=== PATIENT | male | born 1965 | race Caucasian/White ===

== ENCOUNTER → 2019-03-01 | Outpatient (CLI) | payer BC ==
--- NOTE | 2019-03-01 17:12 | RAD ---
AP view of the pelvis and two-view study left hip Clinical indications: Left hip pain. FINDINGS: There is moderate joint space narrowing and moderate spurring of the left hip joint. There is moderate spurring and mild joint space narrowing of the right hip joint. No acute fracture or dislocation or lytic process is seen. IMPRESSION: Moderate primary degenerative osteoarthritis of the left hip joint. Mild to moderate primary degenerative osteoarthritis of the right hip joint. Electronically signed by: Juanjo Anna MD (03/01/2019 5:09 PM) [id number]
== END | disposition home or self-care (01) ==
LOC: PMG 12:36
PROVIDERS: ATTEND Family Medicine
DX: M16.0 Bilateral primary osteoarthritis of hip (principal); M25.852 Other specified joint disorders, left hip
CPT/HCPCS: 73502

== ENCOUNTER → 2019-10-08 | Outpatient (CLI) | payer BC ==
[~2019-10-08] MED LIST: IOHEXOL 240 MG/ML 50ML VIAL. ONE; IOHEXOL 240 MG/ML 50ML VIAL. PO ONE; IOHEXOL 300 MG/ML 75 ML VIAL. IV ONE
[2019-10-08 12:52] LABS: ALBUMIN 3.2 g/dL (3.4-5.0); CALCIUM 9.5 mg/dL (8.5-10.1); TOTAL BILIRUBIN 16.6 mg/dL (0.2-1.0)
[2019-10-08 13:01] LABS: BASO # 0.1 x10^3/uL (0.0-0.2); BASO % 1 % (0-3); EOS # 0.2 x10^3/uL (0.0-0.7); EOS % 3 % (0-3); HEMATOCRIT 40.8 % (39.0-53.0); HEMOGLOBIN 14.1 g/dL (13.0-17.5); LYMPH # 1.4 x10^3/uL (1.0-4.8); LYMPH % 23 % (24-48); MEAN CORPUSCULAR HEMOGLOBIN 35 pg (25-35); MEAN CORPUSCULAR HGB CONC 35 g/dL (31-37); MEAN CORPUSCULAR VOLUME 102 fL (79-100); MONO # 0.6 x10^3/uL (0.0-1.1); MONO % 10 % (0-9); NEUT # 3.9 x10^3uL (1.8-7.7); NEUT % 63 % (31-73); PLATELET COUNT 227 x10^3/uL (140-400); WHITE BLOOD COUNT 6.2 x10^3/uL (4.0-11.0)
[2019-10-08 13:22] LABS: ALBUMIN/GLOBULIN RATIO 0.8 (1.0-1.7); TOTAL PROTEIN 7.2 g/dL (6.4-8.2)
[2019-10-08 13:23] LABS: CREATININE 0.8 mg/dL (0.7-1.3); GFR 101.5; POTASSIUM 3.2 mmol/L (3.5-5.1)
--- NOTE | 2019-10-08 14:04 | RAD ---
EXAM: CT Abdomen and Pelvis with IV contrast CLINICAL HISTORY: JAUNDICE, ABDOMINAL BLOATING COMPARISON: none TECHNIQUE: Helical CT of the abdomen and pelvis was performed following the administration of IV contrast. Axial, coronal and sagittal reformatted images were generated. ---PQRS compliance statement - One or more of the following individualized dose reduction techniques were utilized for this study: 1. Automated exposure control 2. Adjustment of the mA and/or kV according to patient size 3. Use of iterative reconstruction technique--- FINDINGS: Lower chest: Coronary artery calcifications are seen. Calcified granuloma right lower lobe. Abdomen and pelvis: Liver and biliary system: No focal liver lesion. The gallbladder is distended. Small gallstones and sludge are seen dependently. There is intrahepatic and extrahepatic biliary ductal dilatation. Spleen: Unremarkable Pancreas: The pancreas is atrophic. Heterogeneous low attenuating mass is suspected within the pancreatic head/uncinate process measuring 2.9 x 1.9 cm. Adrenal glands: Unremarkable Kidneys: Symmetric nephrograms. Symmetric nephrograms. Punctate nonobstructing left lower pole renal calculus. No hydronephrosis or hydroureter. Mild bladder wall thickening likely cystitis. Lymph nodes/retroperitoneum: No abdominal or pelvic lymphadenopathy. No abdominal or pelvic ascites. Vessels: Aorta is unremarkable. Bowel/Peritoneal cavity: Moderate colonic stool content is seen. No small or large bowel dilatation. No bowel obstruction. Appendix is normal. No abdominal or pelvic ascites. Abdominal wall: Trace fat-containing periumbilical hernia is seen. Bladder: Unremarkable Bones: Degenerative changes of the spine are seen. Hip joint degenerative changes are seen. No aggressive osseous lesion. IMPRESSION: 1. Hypoattenuating pancreatic head/inflammatory process lesion with pancreatic body and tail atrophy as well as intra and extrahepatic biliary ductal dilatation. This should be further evaluated with contrast-enhanced MRI using pancreatic protocol to better delineate suspected pancreatic head mass. 2. Mild bladder wall thickening may be seen with cystitis. Findings discussed with Dr. Dann RANDOLPH at 10/08/2019 2:00 PM. FOR INTERNAL CODING PURPOSES RESULT CODE: (C) Electronically signed by: Carmelo Russell MD (10/08/2019 2:01 PM) [id number]
== END | disposition home or self-care (01) ==
LOC: PMG 11:26
PROVIDERS: ATTEND Family Medicine
DX: K42.9 Umbilical hernia without obstruction or gangrene (principal); K80.20 Calculus of gallbladder without cholecystitis without obstruction; N20.0 Calculus of kidney; I25.10 Atherosclerotic heart disease of native coronary artery without angina pectoris; J84.10 Pulmonary fibrosis, unspecified; K82.8 Other specified diseases of gallbladder; K86.89 Other specified diseases of pancreas; M16.10 Unilateral primary osteoarthritis, unspecified hip
CPT/HCPCS: 36415; 74177; 80053; 82150; 83690; 84443; 85025; 86705; 86709; 86803; 87340; Q9966; Q9967

== ENCOUNTER → 2020-03-23 | Outpatient (CLI) | payer BC ==
[2020-03-23 15:23] LABS: BASO # 0.1 x10^3/uL (0.0-0.2); BASO % 0 % (0-3); EOS # 0.2 x10^3/uL (0.0-0.7); EOS % 1 % (0-3); HEMATOCRIT 30.1 % (39.0-53.0); HEMOGLOBIN 9.8 g/dL (13.0-17.5); LYMPH # 1.6 x10^3/uL (1.0-4.8); LYMPH % 12 % (24-48); MEAN CORPUSCULAR HEMOGLOBIN 35 pg (25-35); MEAN CORPUSCULAR HGB CONC 33 g/dL (31-37); MEAN CORPUSCULAR VOLUME 109 fL (79-100); MONO # 0.7 x10^3/uL (0.0-1.1); MONO % 5 % (0-9); NEUT # 10.5 x10^3uL (1.8-7.7); NEUT % 81 % (31-73); PLATELET COUNT 227 x10^3/uL (140-400); RED BLOOD COUNT 2.76 x10^6/uL (4.30-5.70); RED CELL DISTRIBUTION WIDTH 15.6 % (11.5-14.5); WHITE BLOOD COUNT 13.1 x10^3/uL (4.0-11.0)
[2020-03-23 15:31] LABS: ALBUMIN 2.2 g/dL (3.4-5.0); CALCIUM 7.3 mg/dL (8.5-10.1); CREATININE 0.7 mg/dL (0.7-1.3); GFR 118.4; MAGNESIUM 2.1 mg/dL (1.8-2.4); PHOSPHORUS 4.8 mg/dL (2.6-4.7); POTASSIUM 5.3 mmol/L (3.5-5.1); TOTAL BILIRUBIN 0.4 mg/dL (0.2-1.0)
[2020-03-23 15:49] LABS: ALBUMIN/GLOBULIN RATIO 1.2 (1.0-1.7); TOTAL PROTEIN 4.1 g/dL (6.4-8.2)
== END ==
LOC: SPEC 14:47
PROVIDERS: ATTEND Surgery
DX: I10 Essential (primary) hypertension (principal)
CPT/HCPCS: 36415; 80053; 83735; 84100; 85025

== ENCOUNTER → 2020-03-24 | Outpatient (CLI) | payer BC ==
[2020-03-24 12:25] LABS: BASO % 0 % (0-3); EOS # 0.3 x10^3/uL (0.0-0.7); EOS % 2 % (0-3); HEMATOCRIT 30.1 % (39.0-53.0); LYMPH % 15 % (24-48); MEAN CORPUSCULAR HEMOGLOBIN 33 pg (25-35); MEAN CORPUSCULAR HGB CONC 33 g/dL (31-37); MEAN CORPUSCULAR VOLUME 100 fL (79-100); MONO # 0.8 x10^3/uL (0.0-1.1); MONO % 7 % (0-9); NEUT # 9.7 x10^3uL (1.8-7.7); NEUT % 76 % (31-73); PLATELET COUNT 261 x10^3/uL (140-400); RED BLOOD COUNT 3.03 x10^6/uL (4.30-5.70); RED CELL DISTRIBUTION WIDTH 15.2 % (11.5-14.5); WHITE BLOOD COUNT 12.9 x10^3/uL (4.0-11.0)
[2020-03-24 14:52] LABS: ALBUMIN 2.5 g/dL (3.4-5.0); ALBUMIN/GLOBULIN RATIO 0.7 (1.0-1.7); CALCIUM 8.3 mg/dL (8.5-10.1); CREATININE 0.5 mg/dL (0.7-1.3); GFR 174.6; MAGNESIUM 1.5 mg/dL (1.8-2.4); POTASSIUM 3.5 mmol/L (3.5-5.1); TOTAL BILIRUBIN 0.4 mg/dL (0.2-1.0); TOTAL PROTEIN 5.9 g/dL (6.4-8.2)
== END ==
LOC: SPEC 11:55
PROVIDERS: ATTEND Surgery
DX: I10 Essential (primary) hypertension (principal)
CPT/HCPCS: 36415; 80053; 83735; 84100; 85025

== ENCOUNTER → 2020-03-30 | Outpatient (CLI) | payer BC ==
[2020-03-30 11:04] LABS: BASO % 1 % (0-3); EOS # 0.3 x10^3/uL (0.0-0.7); EOS % 3 % (0-3); HEMATOCRIT 30.1 % (39.0-53.0); HEMOGLOBIN 10.2 g/dL (13.0-17.5); LYMPH # 2.1 x10^3/uL (1.0-4.8); LYMPH % 24 % (24-48); MEAN CORPUSCULAR HEMOGLOBIN 33 pg (25-35); MEAN CORPUSCULAR HGB CONC 34 g/dL (31-37); MEAN CORPUSCULAR VOLUME 99 fL (79-100); MONO # 0.8 x10^3/uL (0.0-1.1); MONO % 10 % (0-9); NEUT # 5.4 x10^3uL (1.8-7.7); NEUT % 63 % (31-73); PLATELET COUNT 206 x10^3/uL (140-400); RED BLOOD COUNT 3.05 x10^6/uL (4.30-5.70); RED CELL DISTRIBUTION WIDTH 14.8 % (11.5-14.5); WHITE BLOOD COUNT 8.7 x10^3/uL (4.0-11.0)
[2020-03-30 11:13] LABS: ALBUMIN 2.4 g/dL (3.4-5.0); ALBUMIN/GLOBULIN RATIO 0.7 (1.0-1.7); CALCIUM 8.6 mg/dL (8.5-10.1); CREATININE 0.5 mg/dL (0.7-1.3); GFR 174.6; MAGNESIUM 1.7 mg/dL (1.8-2.4); PHOSPHORUS 4.4 mg/dL (2.6-4.7); POTASSIUM 3.6 mmol/L (3.5-5.1); TOTAL BILIRUBIN 0.3 mg/dL (0.2-1.0); TOTAL PROTEIN 5.7 g/dL (6.4-8.2)
== END ==
LOC: LAB 09:54
PROVIDERS: ATTEND Family Medicine
DX: I10 Essential (primary) hypertension (principal)
CPT/HCPCS: 36415; 80053; 83735; 84100; 85025

== ENCOUNTER → 2020-04-06 | Outpatient (CLI) | payer BC ==
[2020-04-06 09:49] LABS: HEMATOCRIT 31.1 % (39.0-53.0); HEMOGLOBIN 10.5 g/dL (13.0-17.5); RED BLOOD COUNT 3.18 x10^6/uL (4.30-5.70); RED CELL DISTRIBUTION WIDTH 14.6 % (11.5-14.5); WHITE BLOOD COUNT 8.9 x10^3/uL (4.0-11.0)
[2020-04-06 10:10] LABS: ALBUMIN 2.4 g/dL (3.4-5.0); ALBUMIN/GLOBULIN RATIO 0.6 (1.0-1.7); CALCIUM 8.3 mg/dL (8.5-10.1); CREATININE 0.5 mg/dL (0.7-1.3); GFR 174.6; MAGNESIUM 1.7 mg/dL (1.8-2.4); PHOSPHORUS 3.6 mg/dL (2.6-4.7); TOTAL BILIRUBIN 0.5 mg/dL (0.2-1.0); TOTAL PROTEIN 6.1 g/dL (6.4-8.2)
== END ==
LOC: SPEC 09:24
PROVIDERS: ATTEND Surgery
DX: Z48.3 Aftercare following surgery for neoplasm (principal); Z45.2 Encounter for adjustment and management of vascular access device
CPT/HCPCS: 36415; 80053; 83735; 84100; 85027

== ENCOUNTER → 2020-04-13 | Outpatient (CLI) | payer BC ==
[2020-04-13 10:12] LABS: BASO % 0 % (0-3); EOS # 0.1 x10^3/uL (0.0-0.7); EOS % 1 % (0-3); HEMATOCRIT 29.9 % (39.0-53.0); HEMOGLOBIN 9.9 g/dL (13.0-17.5); LYMPH # 2.2 x10^3/uL (1.0-4.8); LYMPH % 31 % (24-48); MEAN CORPUSCULAR HEMOGLOBIN 32 pg (25-35); MEAN CORPUSCULAR HGB CONC 33 g/dL (31-37); MEAN CORPUSCULAR VOLUME 97 fL (79-100); MONO # 0.6 x10^3/uL (0.0-1.1); MONO % 9 % (0-9); NEUT # 4.1 x10^3uL (1.8-7.7); NEUT % 58 % (31-73); PLATELET COUNT 208 x10^3/uL (140-400); RED BLOOD COUNT 3.08 x10^6/uL (4.30-5.70); RED CELL DISTRIBUTION WIDTH 14.5 % (11.5-14.5)
[2020-04-13 10:16] LABS: ALBUMIN 2.4 g/dL (3.4-5.0); ALBUMIN/GLOBULIN RATIO 0.7 (1.0-1.7); CALCIUM 8.4 mg/dL (8.5-10.1); CREATININE 0.5 mg/dL (0.7-1.3); GFR 174.6; MAGNESIUM 1.7 mg/dL (1.8-2.4); PHOSPHORUS 4.5 mg/dL (2.6-4.7); POTASSIUM 3.8 mmol/L (3.5-5.1); TOTAL BILIRUBIN 0.3 mg/dL (0.2-1.0); TOTAL PROTEIN 5.9 g/dL (6.4-8.2)
== END ==
LOC: LAB 09:36
PROVIDERS: ATTEND Surgery
DX: Z45.2 Encounter for adjustment and management of vascular access device (principal); Z48.3 Aftercare following surgery for neoplasm
CPT/HCPCS: 36415; 80053; 83735; 84100; 85025

== ENCOUNTER → 2020-04-20 | Outpatient (CLI) | payer BC ==
[2020-04-20 10:35] LABS: HEMATOCRIT 31.7 % (39.0-53.0); HEMOGLOBIN 10.5 g/dL (13.0-17.5); RED BLOOD COUNT 3.31 x10^6/uL (4.30-5.70); RED CELL DISTRIBUTION WIDTH 14.6 % (11.5-14.5); WHITE BLOOD COUNT 7.7 x10^3/uL (4.0-11.0)
[2020-04-20 10:49] LABS: ALBUMIN 2.7 g/dL (3.4-5.0); ALBUMIN/GLOBULIN RATIO 0.7 (1.0-1.7); CREATININE 0.5 mg/dL (0.7-1.3); GFR 174.6; MAGNESIUM 1.8 mg/dL (1.8-2.4); PHOSPHORUS 4.7 mg/dL (2.6-4.7); POTASSIUM 3.9 mmol/L (3.5-5.1); TOTAL BILIRUBIN 0.4 mg/dL (0.2-1.0); TOTAL PROTEIN 6.5 g/dL (6.4-8.2)
== END ==
LOC: LAB 09:36
PROVIDERS: ATTEND Surgery
DX: Z48.3 Aftercare following surgery for neoplasm (principal); Z45.2 Encounter for adjustment and management of vascular access device
CPT/HCPCS: 36415; 80053; 83735; 84100; 85027

== ENCOUNTER → 2020-04-27 | Outpatient (CLI) | payer BC ==
[2020-04-27 10:05] LABS: ALBUMIN 2.8 g/dL (3.4-5.0); ALBUMIN/GLOBULIN RATIO 0.8 (1.0-1.7); CALCIUM 8.7 mg/dL (8.5-10.1); CREATININE 0.6 mg/dL (0.7-1.3); GFR 141.5; MAGNESIUM 1.8 mg/dL (1.8-2.4); PHOSPHORUS 3.9 mg/dL (2.6-4.7); TOTAL BILIRUBIN 0.4 mg/dL (0.2-1.0); TOTAL PROTEIN 6.3 g/dL (6.4-8.2)
== END ==
LOC: LAB 09:39
PROVIDERS: ATTEND Surgery
DX: Z48.3 Aftercare following surgery for neoplasm (principal); Z45.2 Encounter for adjustment and management of vascular access device
CPT/HCPCS: 36415; 80053; 83735; 84100

== ENCOUNTER → 2020-05-04 | Outpatient (CLI) | payer BC ==
[2020-05-04 11:19] LABS: HEMATOCRIT 28.4 % (39.0-53.0); HEMOGLOBIN 9.8 g/dL (13.0-17.5); RED BLOOD COUNT 3.08 x10^6/uL (4.30-5.70); RED CELL DISTRIBUTION WIDTH 15.4 % (11.5-14.5)
[2020-05-04 11:37] LABS: ALBUMIN 2.6 g/dL (3.4-5.0); ALBUMIN/GLOBULIN RATIO 0.7 (1.0-1.7); CALCIUM 8.5 mg/dL (8.5-10.1); CREATININE 0.4 mg/dL (0.7-1.3); GFR 225.9; MAGNESIUM 1.6 mg/dL (1.8-2.4); PHOSPHORUS 4.3 mg/dL (2.6-4.7); POTASSIUM 3.5 mmol/L (3.5-5.1); TOTAL BILIRUBIN 0.4 mg/dL (0.2-1.0); TOTAL PROTEIN 6.2 g/dL (6.4-8.2)
== END ==
LOC: LAB 10:51
PROVIDERS: ATTEND Surgery
DX: Z45.2 Encounter for adjustment and management of vascular access device (principal); Z48.3 Aftercare following surgery for neoplasm
CPT/HCPCS: 36415; 80053; 83735; 84100; 85027

== ENCOUNTER → 2020-05-11 | Outpatient (CLI) | payer BC ==
[2020-05-11 12:27] LABS: HEMATOCRIT 29.6 % (39.0-53.0); RED BLOOD COUNT 3.17 x10^6/uL (4.30-5.70); RED CELL DISTRIBUTION WIDTH 15.1 % (11.5-14.5); WHITE BLOOD COUNT 6.9 x10^3/uL (4.0-11.0)
[2020-05-11 12:48] LABS: ALBUMIN 2.7 g/dL (3.4-5.0); ALBUMIN/GLOBULIN RATIO 0.8 (1.0-1.7); CALCIUM 8.4 mg/dL (8.5-10.1); CREATININE 0.4 mg/dL (0.7-1.3); GFR 225.9; MAGNESIUM 1.8 mg/dL (1.8-2.4); PHOSPHORUS 4.1 mg/dL (2.6-4.7); POTASSIUM 4.1 mmol/L (3.5-5.1); TOTAL BILIRUBIN 0.3 mg/dL (0.2-1.0); TOTAL PROTEIN 6.2 g/dL (6.4-8.2)
== END ==
LOC: LAB 12:10
PROVIDERS: ATTEND Surgery
DX: Z45.2 Encounter for adjustment and management of vascular access device (principal); Z48.3 Aftercare following surgery for neoplasm
CPT/HCPCS: 36415; 80053; 83735; 84100; 85027

== ENCOUNTER → 2020-05-18 | Outpatient (CLI) | payer BC ==
[2020-05-18 13:24] LABS: HEMATOCRIT 30.4 % (39.0-53.0); HEMOGLOBIN 10.1 g/dL (13.0-17.5); RED BLOOD COUNT 3.24 x10^6/uL (4.30-5.70); RED CELL DISTRIBUTION WIDTH 15.4 % (11.5-14.5); WHITE BLOOD COUNT 4.7 x10^3/uL (4.0-11.0)
[2020-05-18 13:51] LABS: ALBUMIN 2.8 g/dL (3.4-5.0); ALBUMIN/GLOBULIN RATIO 0.8 (1.0-1.7); CALCIUM 8.4 mg/dL (8.5-10.1); CREATININE 0.6 mg/dL (0.7-1.3); GFR 141.5; MAGNESIUM 1.6 mg/dL (1.8-2.4); PHOSPHORUS 4.5 mg/dL (2.6-4.7); POTASSIUM 3.2 mmol/L (3.5-5.1); TOTAL BILIRUBIN 0.5 mg/dL (0.2-1.0); TOTAL PROTEIN 6.2 g/dL (6.4-8.2)
== END ==
LOC: SPEC 12:42
PROVIDERS: ATTEND Surgery
DX: Z45.2 Encounter for adjustment and management of vascular access device (principal); Z48.3 Aftercare following surgery for neoplasm
CPT/HCPCS: 36415; 80053; 83735; 84100; 85027

== ENCOUNTER → 2020-08-19 | Outpatient (CLI) | payer BC ==
[~2020-08-19] MED LIST changes: -IOHEXOL 240 MG/ML 50ML VIAL. ONE; -IOHEXOL 240 MG/ML 50ML VIAL. PO ONE
--- NOTE | 2020-08-19 10:19 | RAD ---
EXAM: Chest, abdomen and pelvis CT with intravenous contrast. HISTORY: Pancreatic adenocarcinoma restaging. TECHNIQUE: Computed tomographic images of the chest, abdomen and pelvis were obtained following the a dministration of intravenous contrast. Multiplanar reformatting was performed. *One or more of the following individualized dose reduction techniques were utilized for this examina tion: 1. Automated exposure control. 2. Adjustment of the mA and/or kV according to patient size. 3. Use of iterative reconstruction technique. COMPARISON: 05/25/2020. FINDINGS: Chest: The heart is normal in size. The aorta is normal in caliber. There is no mediastinal or hilar lymphadenopathy. There are calcified mediastinal and left hilar granulomas. There is a right chest wa ll port catheter in expected position. There is a tiny focus of gas along the right posterior mid tra feliberto likely due to a tiny tracheal diverticulum, of no clinical significance. There is no pneumothorax. There is no pleural effusion. There is no infiltrate. There is no suspiciou s pulmonary nodule. There is a 2 mm nodule within the lateral left pleural fissure due to a fissural lymph node. There is thoracic kyphosis. There is multilevel degenerative change throughout the cervic al and thoracic spine. No suspicious osseous lesion is seen. Abdomen and pelvis: There is a slight interval decrease in pneumobilia. There is mild hepatic steatos is. No focal hepatic lesion is seen. There are findings consistent with pancreatic body and tail spar ing Whipple surgery. There has been slight interval increase in a 10 mm soft tissue density lesion ce ntrally inferior to the left renal vein posterior to the superior mesenteric artery. There is a tiny stable nodule likely due to a retroperitoneal lymph node in this location. There are surgical anastom osis involving the stomach and small bowel. No dehiscence is seen. There are splenic granulomas. The spleen is normal in size. The adrenal glands are unremarkable. Ther e is a 2 mm nonobstructing left renal stone. There is no evidence of bowel obstruction or abnormal herman wel wall thickening. The urinary bladder is unremarkable. There is no aortic aneurysm or dissection. There are degenerative changes throughout the spine. There is no suspicious osseous lesion. There is central canal stenosis and foraminal stenosis at multiple levels. There has been significant interval weight loss. IMPRESSION: 1. Findings consistent with pancreatic body and tail sparing Whipple surgery. There is a 10 mm soft t issue lesion inferior to the left renal vein and posterior to the superior mesenteric artery which is increased compared to the prior study. This may be due to post therapeutic changes or recurrent chris gnancy. There is stable surrounding benign-appearing lymph nodes. Correlate with a CA-19-9 tumor rashid er level and short-term imaging follow-up. 2. Incidental left nephrolithiasis. 3. Significant interval weight loss. Electronically signed by: Carlota Cardenas MD (08/19/2020 10:17 AM) [id number]
== END ==
LOC: CT 08:54
PROVIDERS: ATTEND Internal Medicine Hematology & Oncology
DX: C25.0 Malignant neoplasm of head of pancreas (principal); N20.0 Calculus of kidney; K76.0 Fatty (change of) liver, not elsewhere classified; R91.1 Solitary pulmonary nodule; R63.4 Abnormal weight loss; M79.89 Other specified soft tissue disorders; M40.204 Unspecified kyphosis, thoracic region; M47.819 Spondylosis without myelopathy or radiculopathy, site unspecified; M48.00 Spinal stenosis, site unspecified
CPT/HCPCS: 71260; 74177; Q9967

== ENCOUNTER → 2020-11-19 | Outpatient (CLI) | payer BC ==
[~2020-11-19] MED LIST changes: +IOHEXOL 240 MG/ML 50ML VIAL. ONE
[2020-11-19 09:19] LABS: CREATININE 0.6 mg/dL (0.7-1.3); GFR 140.9
--- NOTE | 2020-11-19 15:51 | RAD ---
EXAM: CT CHEST, ABDOMEN, AND PELVIS WITH CONTRAST INDICATION: Pancreatic adenocarcinoma COMPARISON: 08/19/2020 TECHNIQUE: Helical CT imaging performed of the chest, abdomen and pelvis after administration of intr avenous contrast. Sagittal and coronal reformats were obtained. One or more of the following individualized dose reduction techniques were utilized for this examinat ion: 1. Automated exposure control 2. Adjustment of the mA and/or kV according to patient size 3. Use of iterative reconstruction technique. FINDINGS: CHEST: Thyroid gland and thoracic inlet: Normal. Heart and great vessels: Heart is normal in size. No pericardial effusion. There are coronary artery calcifications. Thoracic aorta is normal in caliber without evidence of dissection. Pulmonary arterie s are clear. Mediastinum and vale: There are calcified mediastinal and left hilar lymph nodes. No lymphadenopathy. Lungs and pleura: There is calcific granuloma in the left lower lobe. There a few unchanged scattered 2 to 3 mm pulmonary nodules including a 2.5 mm nodule along the minor fissure and adjacent to the le ft major fissure. No suspicious pulmonary nodules. No pleural effusion. Chest wall and axillae: No axillary lymphadenopathy. There is a right chest wall port with tip at the superior cavoatrial junction. Bones: No acute osseous abnormality. There is thoracic kyphosis and degenerative disc disease. ABDOMEN AND PELVIS: Liver: No focal liver lesions. Portal and hepatic veins are patent. Mild periportal edema Gallbladder/Biliary Tree: Surgical changes of Whipple procedure. Unchanged pneumobilia. Pancreas: There are surgical changes of Whipple. The remaining pancreatic body and tail are normal in appearance without focal mass. No pancreatic duct dilatation. Spleen: There are calcified splenic granulomas. No splenomegaly Adrenal Glands: Normal. Kidneys/Ureters/Bladder: Kidneys are normal in size and enhancement. No hydronephrosis. There is left nephrolithiasis. 6 ureters and bladder are normal. Reproductive Organs: Unchanged Stomach, small bowel, and colon: Surgical changes of gastric bypass and multiple are redemonstrated. There is no bowel obstruction. Vasculature: Abdominal aorta is normal in caliber. Lymph Nodes: The small lymph node or soft tissue nodule inferior to the left renal vein and posterior to the superior mesenteric artery has decreased in size, now about 3 mm in diameter, previously 9 mm . No new lymphadenopathy. A portacaval lymph node measures 7 mm short axis, unchanged.. Peritoneum and retroperitoneum: Trace free fluid in the pelvis. No free air. Bones: No acute osseous abnormality. There is severe lower lumbar facet arthrosis, greatest at L4-L5 on the right. Mild degenerative disc disease. Other: Decreased cachexia. IMPRESSION: 1. Surgical changes of Whipple procedure. The small nodule posterior to the SMA and inferior to the left renal vein has decreased in size, now 3 mm, previously 9 mm. No new lymphadenopathy. 2. There are a few tiny pulmonary nodules in the lungs, unchanged. 3. Left nephrolithiasis. Electronically signed by: Rupal Rogers MD (11/19/2020 3:49 PM) [id number]
== END ==
LOC: CT 08:29
PROVIDERS: ATTEND Internal Medicine Hematology & Oncology
DX: C25.0 Malignant neoplasm of head of pancreas (principal); N20.0 Calculus of kidney; I25.10 Atherosclerotic heart disease of native coronary artery without angina pectoris; J84.10 Pulmonary fibrosis, unspecified; R91.8 Other nonspecific abnormal finding of lung field; M51.34 Other intervertebral disc degeneration, thoracic region; M40.294 Other kyphosis, thoracic region
CPT/HCPCS: 36415; 71260; 74177; 82565; 84520; Q9967

== ENCOUNTER 2021-01-02 13:31 | Emergency (ER) | payer BC ==
[~2021-01-02] VITALS: Ht 172.7 cm; Wt 76.3 kg
[2021-01-02 13:35] VITALS: BP 118/77
--- NOTE | 2021-01-02 13:56 | PHYS DOC ---
General Adult EDM: Chief Complaint: ABDOMINAL PAIN HPI: HPI: Patient is a 55-year-old male being seen in the ER for abdominal pain that radiates to his back. Patient states that the abdominal pain is bilateral upper abdomen that radiates to his flank region. Pain started yesterday. It was worse after eating breakfast this morning. Patient reports nausea. He has a history of kidney stones. Last bowel movement was this morning. Patient denies vomiting, diarrhea, dysuria, hematuria, fevers, blood in stools or vomit. (SUDHAKAR MONTES APRN) Review of Systems: Review of Systems: 14 body systems of the review of systems have been reviewed. See HPI for pertinent positive and negative responses, otherwise all other systems are negative, nonpertinent or noncontributory (SUDHAKAR MONTES APRN) Allergies: Allergies: Allergies Coded Allergies Type Severity Reaction Last Updated Verified No Known Drug Allergies 10/08/19 No (SUDHAKAR MONTES APRN) Physical Exam: PE: Constitutional: Well developed, well nourished, no acute distress, non-toxic appearance. [] HENT: Normocephalic, atraumatic, bilateral external ears normal, oropharynx moist, no oral exudates, nose normal. [] Eyes: PERRL, EOMI, conjunctiva normal, no discharge. [] Neck: Normal range of motion, no tenderness, supple, no stridor. [] Cardiovascular:Heart rate regular rhythm, no murmur [] Lungs & Thorax: Bilateral breath sounds clear to auscultation [] Abdomen: Bowel sounds normal, soft, no tenderness, no masses, no pulsatile masses. [] Skin: Warm, dry, no erythema, no rash. [] Back: No tenderness, bilateral CVA tenderness Extremities: No tenderness, no cyanosis, no clubbing, ROM intact, no edema. [] Neurologic: Alert and oriented X 3, normal motor function, normal sensory function, no focal deficits noted. [] Psychologic: Affect normal, judgement normal, mood normal. [] (SUDHAKAR MONTES APRN) Current Patient Data: Labs: Laboratory Tests Test 01/02/21 14:30 White Blood Count 9.6 x10^3/uL Red Blood Count 3.25 x10^6/uL Hemoglobin 11.1 g/dL Hematocrit 32.6 % Mean Corpuscular Volume 101 fL Mean Corpuscular Hemoglobin 34 pg Mean Corpuscular Hemoglobin Concent 34 g/dL Red Cell Distribution Width 13.4 % Platelet Count 161 x10^3/uL Neutrophils (%) (Auto) 88 % Lymphocytes (%) (Auto) 6 % Monocytes (%) (Auto) 6 % Eosinophils (%) (Auto) 0 % Basophils (%) (Auto) 0 % Neutrophils # (Auto) 8.4 x10^3uL Lymphocytes # (Auto) 0.6 x10^3/uL Monocytes # (Auto) 0.6 x10^3/uL Eosinophils # (Auto) 0.0 x10^3/uL Basophils # (Auto) 0.0 x10^3/uL Sodium Level 139 mmol/L Potassium Level 3.5 mmol/L Chloride Level 104 mmol/L Carbon Dioxide Level 29 mmol/L Anion Gap 6 Blood Urea Nitrogen 13 mg/dL Creatinine 0.6 mg/dL Estimated GFR (Cockcroft-Gault) 140.9 BUN/Creatinine Ratio 22 Glucose Level 233 mg/dL Calcium Level 8.6 mg/dL Total Bilirubin 0.5 mg/dL Aspartate Amino Transf (AST/SGOT) 25 U/L Alanine Aminotransferase (ALT/SGPT) 26 U/L Alkaline Phosphatase 153 U/L Total Protein 6.4 g/dL Albumin 3.1 g/dL Albumin/Globulin Ratio 0.9 Lipase 19 U/L Current Medications Medications (Trade) Dose Ordered Sig/Radha Route PRN Reason Start Time Stop Time Status Last Admin Dose Admin Sodium Chloride 1,000 ml @ 1,000 mls/hr 1X ONCE IV 01/02/21 14:00 01/02/21 14:59 DC 01/02/21 14:40 Ondansetron HCl (Zofran) 4 mg 1X ONCE IVP 01/02/21 14:00 01/02/21 14:01 DC 01/02/21 14:41 Fentanyl Citrate (Fentanyl 2ml Vial) 50 mcg 1X ONCE IVP 01/02/21 14:00 01/02/21 14:02 DC 01/02/21 14:41 (SUDHAKAR MONTES APRN) EKG: EKG: [] (SUDHAKAR MONTES APRN) Radiology/Procedures: Radiology/Procedures: PROCEDURE: CT ABDOMEN PELVIS WO CONTRAST Exam Date: 01/02/2021 1:[address] ABDOMEN+PELVIS WO Indication: Reason: flank pain / Spl. Instructions: bilat flank pain w/ hx of pancreatic ca / History: . TECHNIQUE: CT examination of the abdomen and pelvis was performed without oral or intravenous contrast. One or more of the following dose reduction techniques were utilized: *Automated exposure control (AEC) *Adjustment of mA and/or kV according to patient size *Use of iterative reconstruction technique *CT scan done according to ALARA, or ALARA/IMAGE GENTLY COMPARISON: November 19, 2020 FINDINGS: The visualized lung bases are clear. Postoperative changes are seen again seen in the upper abdomen. Status post cholecystectomy with pneumobilia again seen. Calcified granulomas in the spleen are again seen. The liver, spleen, and adrenal glands are otherwise normal. Visualized remaining pancreas is without focal abnormality. There are small nonobstructing left renal calculi, the largest measuring 3 mm. The kidneys are otherwise normal bilaterally. No hydronephrosis or hydroureter is seen. No right urinary tract calculi are seen. Urinary bladder is normal in appearance. There are multiple loops of small bowel near the umbilicus with suggestion of mild mural thickening and mild distention raising the possibility of enteritis, though evaluation is limited in the absence of IV and oral contrast. There is small free fluid in the pelvis which is nonspecific. There is no bowel o bstruction. Appendix is normal. No significant atherosclerotic calcifications are seen. No lymphadenopathy or ascites is seen. Small free fluid in the pelvis is nonspecific. Degenerative changes are seen in the spine. IMPRESSION: Several loops of small bowel near the umbilicus have an appearance suggestive of mural thickening and mild distention, raising the possibility of nonspecific enteritis, though evaluation is limited in the absence of IV and oral contrast. Small free fluid is nonspecific. Infectious, inflammatory, ischemic, or neoplastic bowel pathology is not excluded. Nonobstructing left renal calculi. No hydronephrosis. Postoperative changes of the upper abdomen are again seen, including prior cholecystectomy with pneumobilia. Electronically signed by: Karis Dillard MD (01/02/2021 2:50 PM) [facility] DICTATED AND SIGNED BY: KARIS DILLARD MD DATE: 01/02/21 1432 CC: SUDHAKAR MONTES APRN; FRANCES RANDOLPH MD ~MTH0 0 [] (SUDHAKAR MONTES APRN) Heart Score: C/O Chest Pain: No Risk Factors: Risk Factors: DM, Current or recent (<one month) smoker, HTN, HLP, family history of CAD, obesity. Risk Scores: Score 0 - 3: 2.5% MACE over next 6 weeks - Discharge Home Score 4 - 6: 20.3% MACE over next 6 weeks - Admit for Clinical Observation Score 7 - 10: 72.7% MACE over next 6 weeks - Early Invasive Strategies (SUDHAKAR MONTES APRN) Course & Med Decision Making: Course & Med Decision Making Pertinent Labs and Imaging studies reviewed. (See chart for details) Patient is a 55-year-old male being seen in the ER for upper abdominal pain that radiates to his flank. Work-up in the ER consisted of blood work, CT scan of abdomen, urinalysis. Patient treated with fluids, nausea medication, pain medication. Blood work was unremarkable. CT scan of abdomen showed possible enteritis. Patient was noted to have kidney stones but they were nonobstr ucting. Patient to be treated with an antibiotic, he was given his first dose in the ER today. Vital signs stable patient advised to increase fluids, educated on brat diet and follow-up with primary care provider. I discussed with patient all findings and diagnostic testing as well as the need to follow- up with PCP for further evaluation and treatment or return to the ER if any new or worsening symptoms. Strict return precautions were also discussed at length. Patient voiced understanding and agreement with the plan. Patient is hemodynamically stable at the time of disposition. (SUDHAKAR MONTES APRN) Dragon Disclaimer: Dragon Disclaimer: This electronic medical record was generated, in whole or in part, using a voice recognition dictation system. (SUDHAKAR MONTES APRN) Attending Co-Sign The patient was seen and interviewed as well as examined at the bedside. The chart was reviewed. The case was discussed. Agree with the plan of care. (HASMUKH FUNES DO) Departure Departure: Impression: Primary Impression: Enteritis Disposition: HOME / SELF CARE / HOMELESS Condition: GOOD Referrals: FRANCES RANDOLPH MD (PCP) Patient Instructions: Viral Gastroenteritis Additional Instructions: You were seen in the ER today for abdominal pain. The CT scan of your abdomen showed some inflammation of your intestines consistent with an enteritis. As we discussed, is unsure to know whether it is a viral or bacterial cause. You will be treated with an antibiotic in case it is caused by bacteria. You were g iven your first dose in the ER. Make sure you start and finish this antibiotic completely. You could stick to a clear liquid diet for the remainder of today, this includes soups, is Gatorade, Jell-O. Increase your fluid intake. Tomorrow, you may benefit from a bland diet such as the brat diet which consists of bananas, rice, applesauce, and toast. Avoid eating spicy, greasy, fatty foods. You can take Tylenol/ibuprofen for pain as needed. Please follow-up with your primary care provider on Monday regarding your ER visit. If you develop worsening of your abdominal pain, intractable nausea or vomiting, high fevers refractory to treatment, inability to eat or drink anything, blood in stools or vomit please return to the ER immediately. EMERGENCY DEPARTMENT GENERAL DISCHARGE INSTRUCTIONS Thank you for coming to [facility] (ED) today and trusting us with you care. We trust that you had a positivie experience in our Emergency Department. If you wish to speak to the department management, you may call the director at [phone]. YOUR FOLLOW UP INSTRUCTIONS ARE FOLLOWS: 1. Do you have a private Doctor? If you do not have a private doctor, please ask for a resource list of physicians or clinics that may be able to assist you with follow up care. 2. The Emergency Physician has interpreted your x-rays. The X-Ray specialist will also review them. If there is a change in the findings, you will be notified in 48 hours when at all possible. 3. A lab test or culture has been done, your results will be reviewed and you will be notified if you need a change in treatment. ADDITIONAL INSTRUCTIONS AND INFORMATION: 1. Your care today has been supervised by a physician who is specially trained in emergency care. Many problems require more than one evaluation for a complete diagnosis and treatment. We recommend that you schedule your follow up appointment as recommended to ensure complete treatment of you illness or injury. If you are unable to obtain follow up care and continue to have a problem, or if your condition worsens, we recommend that you return to the ED. 2. We are not able to safely determine your condition over the phone nor are we able to give sound medical advice over the phone. For these safety reasons, if you call for medical advice we will ask you to come to the ED for further evaluation. 3. If you have any questions regarding these discharge instructions please call the ED at [phone]. SAFETY INFORMATION: In the interest of safety, wellness, and injury prevention; we encourage you to wear your sealbelt, if you smoke; quite smoking, and we encourage family to use a p rotective helmet for bicycling and other sporting events that present an increased risk for head injury. IF YOUR SYMPTOMS WORSEN OR NEW SYMPTOMS DEVELOP, OR YOU HAVE CONCERNS ABOUT YOUR CONDITION; OR IF YOUR CONDITION WORSENS WHILE YOU ARE WAITING FOR YOUR FOLLOW UP APPOINTMENT; EITHER CONTACT YOUR PRIMARY CARE DOCTOR, THE PHYSICIAN WHOSE NAME AND NUMBER YOU WERE GIVEN, OR RETURN TO THE ED IMMEDIATELY. Scripts Hydrocodone Bit/Acetaminophen (HYDROCODONE-APAP 5-325 ) 1 Each Tablet 1 TAB PO PRN Q6HRS PRN for PAIN for 2 Days, #8 TAB 0 Refills Prov: SUDHAKAR MONTES APRN 01/02/21 Ondansetron Hcl (ZOFRAN) 4 Mg Tablet 4 MG PO TID PRN PRN for NAUSEA for 3 Days, #9 TAB 0 Refills Prov: SUDHAKAR MONTES APRN 01/02/21 Amoxicillin/Potassium Clav (AUGMENTIN 875-125 TABLET) 1 Each Tablet 1 TAB PO BID for enteritis for 10 Days, #19 TAB 0 Refills Prov: SUDHAKAR MONTES APRN 01/02/21 SUDHAKAR MONTES APRN Jan 02, 2021 13:56 HASMUKH FUNES DO Jan 03, 2021 06:24
[2021-01-02] MEDS ORDERED: IV NORMAL SALINE 1,000ML 1,000 ML IV ONE (14:00)
[2021-01-02] MEDS ORDERED: ONDANSETRON PF 4 MG/2 ML VIAL. IVP ONE ×2 (14:00→15:30)
[2021-01-02 14:50] LABS: BASO % 0 % (0-3); EOS % 0 % (0-3); HEMATOCRIT 32.6 % (39.0-53.0); HEMOGLOBIN 11.1 g/dL (13.0-17.5); LYMPH # 0.6 x10^3/uL (1.0-4.8); LYMPH % 6 % (24-48); MEAN CORPUSCULAR HEMOGLOBIN 34 pg (25-35); MEAN CORPUSCULAR HGB CONC 34 g/dL (31-37); MEAN CORPUSCULAR VOLUME 101 fL (79-100); MONO # 0.6 x10^3/uL (0.0-1.1); MONO % 6 % (0-9); NEUT # 8.4 x10^3uL (1.8-7.7); NEUT % 88 % (31-73); PLATELET COUNT 161 x10^3/uL (140-400); RED BLOOD COUNT 3.25 x10^6/uL (4.30-5.70); RED CELL DISTRIBUTION WIDTH 13.4 % (11.5-14.5); WHITE BLOOD COUNT 9.6 x10^3/uL (4.0-11.0)
--- NOTE | 2021-01-02 14:52 | RAD ---
Exam Date: 01/02/2021 1:[address] ABDOMEN+PELVIS WO Indication: Reason: flank pain / Spl. Instructions: bilat flank pain w/ hx of pancreatic ca / History : . TECHNIQUE: CT examination of the abdomen and pelvis was performed without oral or intravenous contra st. One or more of the following dose reduction techniques were utilized: *Automated exposure control (AEC) *Adjustment of mA and/or kV according to patient size *Use of iterative reconstruction technique *CT scan done according to ALARA, or ALARA/IMAGE GENTLY COMPARISON: November 19, 2020 FINDINGS: The visualized lung bases are clear. Postoperative changes are seen again seen in the upper abdomen. Status post cholecystectomy with pne umobilia again seen. Calcified granulomas in the spleen are again seen. The liver, spleen, and adrenal glands are otherwise normal. Visualized remaining pancreas is without focal abnormality. There are small nonobstructing left renal calculi, the largest measuring 3 mm. The kidneys are otherwise normal bilaterally. No hydronephrosis or hydroureter is seen. No right ur inary tract calculi are seen. Urinary bladder is normal in appearance. There are multiple loops of small bowel near the umbilicus with suggestion of mild mural thickening a nd mild distention raising the possibility of enteritis, though evaluation is limited in the absence of IV and oral contrast. There is small free fluid in the pelvis which is nonspecific. There is no bowel obstruction. Appendix is normal. No significant atherosclerotic calcifications are seen. No lymphadenopathy or ascites is seen. Smal l free fluid in the pelvis is nonspecific. Degenerative changes are seen in the spine. IMPRESSION: Several loops of small bowel near the umbilicus have an appearance suggestive of mural thickening and mild distention, raising the possibility of nonspecific enteritis, though evaluation is limited in t he absence of IV and oral contrast. Small free fluid is nonspecific. Infectious, inflammatory, isch emic, or neoplastic bowel pathology is not excluded. Nonobstructing left renal calculi. No hydronephrosis. Postoperative changes of the upper abdomen are again seen, including prior cholecystectomy with pneum obilia. Electronically signed by: Christopher Dillard MD (01/02/2021 2:50 PM) [facility]
[2021-01-02 14:54] LABS: CALCIUM 8.6 mg/dL (8.5-10.1); CREATININE 0.6 mg/dL (0.7-1.3); GFR 140.9; POTASSIUM 3.5 mmol/L (3.5-5.1)
[2021-01-02 15:00] LABS: ALBUMIN 3.1 g/dL (3.4-5.0); ALBUMIN/GLOBULIN RATIO 0.9 (1.0-1.7); TOTAL BILIRUBIN 0.5 mg/dL (0.2-1.0); TOTAL PROTEIN 6.4 g/dL (6.4-8.2)
[2021-01-02] MEDS ORDERED: AMOX1TAB61 PO (15:14)
[2021-01-02] MEDS ORDERED: AMOXICILLIN/K CLAV 875/125MG TABLET. PO ONE (15:15)
[2021-01-02] MEDS ORDERED: HEPARIN PF 500 UNIT/5 ML DISP.SYRIN. IVP ONE (15:30)
[2021-01-02] MEDS ORDERED: ONDA4TAB7 PO (15:42)
[2021-01-02] MEDS ORDERED: HYDR-2155 PO (15:50)
== END 2021-01-02 15:54 | disposition home or self-care (01) ==
LOC: ER 13:31
DX: K52.9 Noninfective gastroenteritis and colitis, unspecified (principal)
CPT/HCPCS: 36415; 74176; 80053; 83690; 85025; 96361; 96374; 96375; 96376; 99284; J2405; J3010; J7030

== ENCOUNTER 2021-01-18 05:35 | Emergency (ER) | payer BC ==
[~2021-01-18] VITALS: Ht 172.7 cm; Wt 76.4 kg
[~2021-01-18 05:35] MED LIST changes: +AMOX1TAB61 PO; +HYDR-2155 PO; -IOHEXOL 240 MG/ML 50ML VIAL. ONE; -IOHEXOL 300 MG/ML 75 ML VIAL. IV ONE; +ONDA4TAB7 PO
[2021-01-18 05:45] VITALS: BP 104/60
--- NOTE | 2021-01-18 06:07 | PHYS DOC ---
Past History Additional Past Medical Histor: pancreatic cancer Past Surgical History: Other Additional Past Surgical Histo: whipple surgery Alcohol Use: Occasionally Adult General Chief Complaint Chief Complaint: ABDOMINAL PAIN HPI HPI Patient is a 55-year-old male presenting for lower abdominal pain. Patient has complicated past medical history most pertinent for pancreatic cancer status post Whipple surgery at [facility]. Reports he has been at baseline health and awoke without any known inciting event, ingestion, exposure or other known mechanism of injury at 2 AM with vague lower abdominal pain. Patient took 4 mg Zofran and x1 tab [place] without significant relief in symptoms. Reports he tried going back to sleep but ongoing abdominal pain with nausea persisted prompting him to come in for evaluation. He does state he was here roughly a month ago for similar symptoms and was diagnosed with an intra- abdominal infection, he was discharged home with antibiotics which reportedly resolved his condition. Patient denies any fever, URI symptoms, chest pain, ripping or tearing sensation in the torso, shortness of breath or cough, bladder or bowel incontinence, no change in motor or sensory or neuro function Review of Systems Review of Systems Fourteen body systems of review of systems have been reviewed. See HPI for pertinent positives and negative responses, other morse all other systems are negative, non-pertinent or non-contributory Allergies Allergies Allergies Coded Allergies Type Severity Reaction Last Updated Verified No Known Drug Allergies 10/08/19 No Physical Exam Physical Exam Constitutional: Looks older than stated age, thin and malnourished appearing, no acute distress and nontoxic but does appear uncomfortable due to pain HENT: Normocephalic, atraumatic, bilateral external ears normal, oropharynx moist, no oral exudates, nose normal. Eyes: PERRLA, EOMI, conjunctiva normal, no discharge. Neck: Normal range of motion, no tenderness, supple, no stridor. Cardiovascular: Heart rate regular, sinus rhythm, no murmurs rubs or gallops, port present to right upper outer chest Lungs & Thorax: Bilateral breath sounds clear to auscultation Abdomen: Bowel sounds normal, soft, generalized tenderness with guarding present, no rebound, no masses, no pulsatile masses. Nonsurgical abdomen, no peritoneal signs Skin: Warm, dry, no erythema, no rash. Back: No tenderness, no CVA tenderness. Extremities: No tenderness, no cyanosis, no clubbing, ROM intact, no edema. Neurologic: Alert and oriented X 3, grossly normal motor & sensory function, no focal deficits noted. Psychologic: Affect normal, judgement normal, mood normal. Current Patient Data Vital Signs Vital Signs Date Time Temp Pulse Resp B/P (MAP) Pulse Ox O2 Delivery O2 Flow Rate FiO2 01/18/21 05:45 98.6 96 18 104/60 (75) 97 Room Air Lab Results Laboratory Tests Test 01/18/21 06:35 White Blood Count 9.1 x10^3/uL Red Blood Count 3.42 x10^6/uL Hemoglobin 11.4 g/dL Hematocrit 34.2 % Mean Corpuscular Volume 100 fL Mean Corpuscular Hemoglobin 34 pg Mean Corpuscular Hemoglobin Concent 34 g/dL Red Cell Distribution Width 13.3 % Platelet Count 133 x10^3/uL Neutrophils (%) (Auto) 88 % Lymphocytes (%) (Auto) 2 % Monocytes (%) (Auto) 9 % Eosinophils (%) (Auto) 0 % Basophils (%) (Auto) 1 % Neutrophils # (Auto) 8.0 x10^3uL Lymphocytes # (Auto) 0.2 x10^3/uL Monocytes # (Auto) 0.8 x10^3/uL Eosinophils # (Auto) 0.0 x10^3/uL Basophils # (Auto) 0.1 x10^3/uL Platelet Estimate Pending Sodium Level 137 mmol/L Potassium Level 3.1 mmol/L Chloride Level 101 mmol/L Carbon Dioxide Level 23 mmol/L Anion Gap 13 Blood Urea Nitrogen 10 mg/dL Creatinine 0.6 mg/dL Estimated GFR (Cockcroft-Gault) 140.9 BUN/Creatinine Ratio 17 Glucose Level 244 mg/dL Lactic Acid Level 1.3 mmol/L Calcium Level 8.4 mg/dL Magnesium Level 1.6 mg/dL Total Bilirubin 1.0 mg/dL Aspartate Amino Transf (AST/SGOT) 60 U/L Alanine Aminotransferase (ALT/SGPT) 29 U/L Alkaline Phosphatase 155 U/L Troponin I Quantitative < 0.017 ng/mL Total Protein 6.2 g/dL Albumin 3.1 g/dL Albumin/Globulin Ratio 1.0 Lipase 16 U/L Current Medications Medications (Trade) Dose Ordered Sig/Radha Route PRN Reason Start Time Stop Time Status Last Admin Dose Admin Sodium Chloride 1,000 ml @ 1,000 mls/hr Q1H IV 01/18/21 06:30 01/18/21 07:29 DC 01/18/21 06:38 Iohexol (Omnipaque 300 Mg/ml) 75 ml 1X ONCE IV 01/18/21 06:30 01/18/21 06:33 DC 01/18/21 07:24 Info (Do NOT chart on this entry -- for MONITORING) 1 each PRN DAILY PRN MC SEE COMMENTS 01/18/21 06:45 01/20/21 06:44 Fentanyl Citrate (Fentanyl 2ml Vial) 50 mcg 1X ONCE IVP 01/18/21 06:45 01/18/21 07:09 DC 01/18/21 06:54 Ondansetron HCl (Zofran) 4 mg 1X ONCE IVP 01/18/21 06:45 01/18/21 07:09 DC 01/18/21 06:54 Magnesium Sulfate 50 ml @ 25 mls/hr 1X ONCE IV 01/18/21 07:45 01/18/21 09:44 01/18/21 08:15 Potassium Chloride (Klor-Con) 40 meq 1X ONCE PO 01/18/21 07:45 01/18/21 07:46 DC 01/18/21 08:15 Fentanyl Citrate (Fentanyl 2ml Vial) 50 mcg 1X ONCE IVP 01/18/21 08:00 01/18/21 08:03 DC 01/18/21 08:16 Metronidazole 100 ml @ 100 mls/hr 1X ONCE IV 01/18/21 08:30 01/18/21 09:29 UNV Ciprofloxacin Lactate 200 ml @ 200 mls/hr 1X ONCE IV 01/18/21 08:30 01/18/21 09:29 UNV EKG EKG EKG ordered and interpreted by myself at 0649 hrs. as sinus rhythm at 95 bpm, unremarkable intervals, left axis deviation, no ischemic findings, no STEMI Radiology/Procedures Radiology/Procedures CT ABDOMEN+PELVIS W History: lower abdominal pain, history pancreatic ca s/p whipple sx Comparison: 01/03/2020 Technique: After administration of intravenous contrast, helical CT of the abdomen and pelvis was performed from the lung bases through the ischial tuberosities. Coronal and sagittal reconstructions were obtained. 75 mL of Omnipaque 300 were used. One or more of the following dose reduction techniques were utilized: Automated exposure control (AEC), Adjustment of mA and/or kV according to patient size, Use of iterative reconstruction technique such as ASiR, CT scan done according to ALARA and image gently/image wisely Abdomen Findings: The visualized lung bases are clear. 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 Colonic wall thickening in the region of the hepatic flexure. Postsurgical changes of Whipple procedure. Cholecystectomy. Pneumobilia. Spleen and bilateral adrenal glands are normal. Symmetric renal enhancement. There is no hydronephrosis. There is no free fluid. The abdominal aorta is normal in caliber. Pelvis Findings: Urinary bladder is normal. No pelvic free fluid. There is no pelvic or inguinal adenopathy. There is no acute bony abnormality. Degenerative changes of the spine. IMPRESSION: Multiple hepatic metastases with a 4.2 cm lesion invading the hepatic flexure and demonstrating pneumatization consistent with hepatocolic fistula. Hepatic flexure wall thickening probably represents a segmental colitis and/or tumor invasion. Electronically signed by: Reinaldo Angela MD (01/18/2021 8:11 AM) [id number] Heart Score C/O Chest Pain: No HEART Score for Chest Pain: HEART Score for Chest Pain Response (Comments) Value History Slighlty/Non-Suspicious 0 ECG Normal 0 Age >45 - < 65 1 Risk Factors 1 or 2 Risk Factors 1 Troponin < Normal Limit 0 Total 2 Risk Factors: Risk Factors: DM, Current or recent (<one month) smoker, HTN, HLP, family history of CAD, obesity. Risk Scores: Risk Factors: DM, Current or recent (<one month) smoker, HTN, HLP, family history of CAD, obesity. 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 Patient also has gross electrolyte disturbance 2 g IV magnesium, 40 mEq potassium, IV Cipro and Flagyl started. 1 L IV normal saline administered with 4 mg Zofran and a total of 100 fentanyl with improvement in patient's nausea and abdominal pain I contacted surgery attending at [facility] and discussed findings in a patient with an nonacute abdomen, they discussed no indication for emergent surgery, likely a palliative consultation I contacted hospitalist at [facility] and discussed need for tra nsfer and a agreed and accepted patient under their care I updated patient and at bedside on diagnoses, all ER findings, and need for transfer for oncology and surgery consultations at [facility]. They were amenable. All questions and concerns addressed prior to hospital transfer Dragon Disclaimer Dragon Disclaimer This electronic medical record was generated, in whole or in part, using a voice recognition dictation system. Departure Departure: Impression: Primary Impression: Colitis Additional Impressions: Abdominal fistula Intractable nausea and vomiting Electrolyte disturbance Disposition: 02 [facility]M [facility] ([facility]) Admitting Physician: Other (dr morrell) Condition: STABLE Referrals: FRANCES RANDOLPH MD (PCP) Problem Qualifiers SHANDRA ACHARYA DO Jan 18, 2021 06:07
[2021-01-18] MEDS ORDERED: IV NORMAL SALINE 1,000ML 1,000 ML IV SCH (06:30)
[2021-01-18] MEDS ORDERED: IOHEXOL 300 MG/ML 75 ML VIAL. IV ONE (06:30)
[2021-01-18] MEDS ORDERED: CONTRAST GIVEN. MC PRN (06:45)
[2021-01-18] MEDS ORDERED: ONDANSETRON PF 4 MG/2 ML VIAL. IVP ONE (06:45)
--- NOTE | 2021-01-18 06:53 | EKG ---
[address] [address] Test Date: 2021-01-18 Test Time: 06:43:08 Pat Name: ALYSSA CLIFFORD Department: Room: Gender: M Tattoo Designer: CODY : 1965 Requested By: SHANDRA ACHARYA Order Number: [id number] Reading MD: Measurements Intervals [place] Rate: 95 P: 48 VA: 154 QRS: -14 QRSD: 76 T: 43 QT: 350 QTc: 443 Interpretive Statements SINUS RHYTHM LEFTWARD AXIS OTHERWISE NORMAL ECG RI6.02 No previous ECG available for comparison
[2021-01-18 06:55] LABS: BASO # 0.1 x10^3/uL (0.0-0.2); BASO % 1 % (0-3); EOS % 0 % (0-3); HEMATOCRIT 34.2 % (39.0-53.0); HEMOGLOBIN 11.4 g/dL (13.0-17.5); LYMPH # 0.2 x10^3/uL (1.0-4.8); LYMPH % 2 % (24-48); MEAN CORPUSCULAR HEMOGLOBIN 34 pg (25-35); MEAN CORPUSCULAR HGB CONC 34 g/dL (31-37); MEAN CORPUSCULAR VOLUME 100 fL (79-100); MONO # 0.8 x10^3/uL (0.0-1.1); MONO % 9 % (0-9); NEUT % 88 % (31-73); PLATELET COUNT 133 x10^3/uL (140-400); RED BLOOD COUNT 3.42 x10^6/uL (4.30-5.70); RED CELL DISTRIBUTION WIDTH 13.3 % (11.5-14.5); WHITE BLOOD COUNT 9.1 x10^3/uL (4.0-11.0)
[2021-01-18 07:12] LABS: CALCIUM 8.4 mg/dL (8.5-10.1); CREATININE 0.6 mg/dL (0.7-1.3); GFR 140.9; POTASSIUM 3.1 mmol/L (3.5-5.1)
[2021-01-18 07:18] LABS: ALBUMIN 3.1 g/dL (3.4-5.0); TOTAL PROTEIN 6.2 g/dL (6.4-8.2)
[2021-01-18] MEDS ORDERED: MAGNESIUM SULFATE 2GM 50 ML IV ONE (07:45)
[2021-01-18] MEDS ORDERED: POTASSIUM CHLORIDE 20 MEQ TABLET.ER. PO ONE (07:45)
--- NOTE | 2021-01-18 08:14 | RAD ---
CT ABDOMEN+PELVIS W History: lower abdominal pain, history pancreatic ca s/p whipple sx Comparison: 01/03/2020 Technique: After administration of intravenous contrast, helical CT of the abdomen and pelvis was per formed from the lung bases through the ischial tuberosities. Coronal and sagittal reconstructions wer e obtained. 75 mL of Omnipaque 300 were used. One or more of the following dose reduction techniques were utilized: Automated exposure control (AEC), Adjustment of mA and/or kV according to patient size , Use of iterative reconstruction technique such as ASiR, CT scan done according to ALARA and image g ently/image wisely Abdomen Findings: The visualized lung bases are clear. 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 Colonic wal l thickening in the region of the hepatic flexure. Postsurgical changes of Whipple procedure. Cholecystectomy. Pneumobilia. Spleen and bilateral adrenal glands are normal. Symmetric renal enhancement. There is no hydronephrosis. There is no free fluid. The abdominal aorta is normal in caliber. Pelvis Findings: Urinary bladder is normal. No pelvic free fluid. There is no pelvic or inguinal adenopathy. There is no acute bony abnormality. Degenerative changes of the spine. IMPRESSION: Multiple hepatic metastases with a 4.2 cm lesion invading the hepatic flexure and demonstrating pneum atization consistent with hepatocolic fistula. Hepatic flexure wall thickening probably represents a segmental colitis and/or tumor invasion. Electronically signed by: Reinaldo Angela MD (01/18/2021 8:11 AM) [id number]
[2021-01-18] MEDS ORDERED: CIPROFLOXACIN 400MG PREMIX 200 ML IV ONE (08:30)
[2021-01-18 08:56] LABS: % BANDS 31 % (0-9); % BASOS 1 % (0-3); % LYMPHS 10 % (24-48); % MONOS 6 % (0-10); % SEGS 52 % (35-66); PLT ESTIMATE ADEQUATE (ADEQUATE)
[2021-01-18 08:57] LABS: PLATELET CLUMP PRESENT
[2021-01-18] MEDS ORDERED: HYDROmorphone PF 1 MG/ML DISP.SYRIN IVP ONE ×2 (09:00→11:15)
[2021-01-18 10:29] LABS: BACTERIA,URINE 0 /HPF (0-FEW); BILIRUBIN,URINE NEG (NEG); CLARITY,URINE CLEAR; COLOR,URINE YELLOW; GLUCOSE,URINE >=1000 mg/dL (NEG); NITRITE,URINE POS (NEG); RBC,URINE OCC /HPF (0-2); SQUAMOUS EPITHELIAL CELL,UR FEW /LPF; UROBILINOGEN,URINE 0.2 mg/dL (0.2 mg/dL); YEAST,URINE PRESENT /HPF
== END 2021-01-18 11:10 | disposition short-term general hospital (02) ==
LOC: ER 05:35
DX: K52.9 Noninfective gastroenteritis and colitis, unspecified (principal); K63.2 Fistula of intestine; R11.2 Nausea with vomiting, unspecified; E87.8 Other disorders of electrolyte and fluid balance, not elsewhere classified; Z20.822 Contact with and (suspected) exposure to COVID-19
CPT/HCPCS: 36415; 74177; 80053; 81001; 83605; 83690; 83735; 84484; 85007; 85025; 87086; 87426; 93005; 96361; 96365; 96366; 96368; 96375; 96376; 99285; C9803; J0744; J1170; J2405; J3010; J3475; J3490; J7030; Q9967; U0003